=== PATIENT | male | born 1985 | race Caucasian/White ===

== ENCOUNTER 2022-02-08 19:32 | Emergency (ER) | payer OTHER ==
[2022-02-08] MEDS: Bacitracin Oint 1 GM U/D Packet TOP ONE (20:39)
[2022-02-08] MEDS: Lidocaine 1% 5 ML VIAL INJECT ONE (20:40)
== END 2022-02-08 21:10 | disposition home or self-care (01) ==
LOC: LL.ED 19:32
DX: S61.211A Laceration without foreign body of left index finger without damage to nail, initial encounter (principal); W26.8XXA Contact with other sharp object(s), not elsewhere classified, initial encounter; Y99.0 Civilian activity done for income or pay
CPT/HCPCS: 12001; 99282; 99283